=== PATIENT | female | born 2000 | race Caucasian/White ===

== ENCOUNTER 2022-03-04 21:39 | Emergency (ER) | payer OTHER | END 2022-03-05 05:35 | disposition home or self-care (01) | LOC: ER1 21:39 | DX: S09.90XA Unspecified injury of head, initial encounter (principal); S13.4XXA Sprain of ligaments of cervical spine, initial encounter; M25.551 Pain in right hip; F17.290 Nicotine dependence, other tobacco product, uncomplicated; V49.9XXA Car occupant (driver) (passenger) injured in unspecified traffic accident, initial encounter | CPT/HCPCS: 70450; 72100; 72125; 72128; 73502; 99284 ==